=== PATIENT | female | born 1990 | race Caucasian/White ===

== ENCOUNTER 2018-04-02 02:41 | Outpatient (CLI) | payer OTHER ==
[2018-04-02 04:28] LABS: ADD UMIC YES; UR ASCORBIC ACID NEGATIVE (NEGATIVE); UR BACTERIA FEW /HPF (NONE SEEN); UR BILIRUBIN (Dip) NEGATIVE (NEGATIVE); UR BLOOD (Dip) 2+ mg/dL (NEGATIVE); UR CLARITY CLEAR (CLEAR); UR COLOR YELLOW (YELLOW); UR GLUCOSE (Dip) NEGATIVE (NEGATIVE); UR KETONES (Dip) NEGATIVE (NEGATIVE); UR LEUKOCYTE ESTERASE (Dip) 2+ Leu/ul (NEGATIVE); UR NITRITE (Dip) NEGATIVE (NEGATIVE); UR RBC 2 /HPF (0-5); UR SPECIFIC GRAVITY (Dip) 1.008 (1.003-1.030); UR SQUAMOUS EPITHELIAL CELL FEW /HPF (FEW); UR TOTAL PROTEIN (Dip) NEGATIVE (NEGATIVE); UR UROBILINOGEN (Dip) NEGATIVE (NEGATIVE); UR WBC 5 /HPF (0-5)
== END 2018-04-02 05:36 | disposition home or self-care (01) ==
LOC: OBT 02:41 → L-D 02:43 → OBT 05:36
DX: O26.893 Other specified pregnancy related conditions, third trimester (principal); Z3A.36 36 weeks gestation of pregnancy; R10.2 Pelvic and perineal pain
CPT/HCPCS: 76816; 81001

== ENCOUNTER 2018-04-18 19:05 | Inpatient (IN) | payer OTHER ==
[2018-04-18] MEDS ORDERED: LACTATED RINGER'S 1,000 ML IV (23:40)
[2018-04-18] MEDS: LACTATED RINGER'S 1,000 ML IV (23:53)
[2018-04-19] MEDS ORDERED: BUTORPHANOL 2 MG INJ IV
[2018-04-19] MEDS ORDERED: IBUPROFEN 600 MG TAB PO
[2018-04-19 00:43] LABS: ADD MAN DIFF? NO
[2018-04-19] MEDS: LACTATED RINGER'S 1,000 ML IV ×3 (00:45→16:44)
[2018-04-19 00:47] LABS: BASOPHILS % 0.3 % (0.0-2.0); EOSINOPHILS % 0.6 % (0.0-7.0); HEMATOCRIT 36.6 % (37.0-47.0); HEMOGLOBIN 12.3 g/dl (12.0-16.0); LYMPHOCYTES # 1.8 10^3/ul (0.8-2.9); LYMPHOCYTES % 25.8 % (15.0-51.0); MEAN CORPUSCULAR HEMOGLOBIN 29.2 pg (29.0-33.0); MEAN CORPUSCULAR HGB CONC 33.6 g/dl (32.0-37.0); MEAN CORPUSCULAR VOLUME 86.9 fl (82.0-101.0); MEAN PLATELET VOLUME 10.1 fl (7.4-10.4); MONOCYTE # 0.6 10^3/ul (0.3-0.9); MONOCYTES % 7.9 % (0.0-11.0); NEUTROPHIL # 4.5 10^3/ul (1.6-7.5); NEUTROPHILS % 64.8 % (39.0-77.0); PLATELET COUNT 319 10^3/UL (140-415); RED BLOOD COUNT 4.21 10^6/ul (4.20-5.40); RED CELL DISTRIBUTION WIDTH 14.8 % (11.5-14.5)
[2018-04-19 01:06] LABS: PROTIME 12.2 Sec (11.9-14.9)
[2018-04-19 01:07] LABS: PARTIAL THROMBOPLASTIN TIME 27.1 Sec (23.0-35.0)
[2018-04-19 01:40] LABS: HEPATITIS B SURFACE ANTIGEN NEGATIVE (NEGATIVE)
[2018-04-19] MEDS: OXYTOCIN 30 UNITS/LR 500 ML IV ×2 (02:38→19:16)
[2018-04-19 15:36] LABS: RAPID PLASMA REAGIN NONREACTIVE (NR)
[2018-04-19] MEDS: LIDOCAINE 1% (MPF) 30 ML INJ INJ (18:37)
[2018-04-19] MEDS: METHYLERGONOVINE 0.2 MG INJ IM (18:51)
[2018-04-19] MEDS: MISOPROSTOL 200 MCG TAB PR ×2 (18:51→18:55)
[2018-04-19] MEDS ORDERED: OXYTOCIN 30 UNITS/LR 500 ML IV ×4 (21:22→21:30)
[2018-04-19] MEDS ORDERED: CARBOPROST 250 MCG INJ IM ×2 (21:30)
[2018-04-19] MEDS ORDERED: SENNA/DOCUSATE NA (8.6MG/50MG) TAB PO (21:30)
[2018-04-19] MEDS ORDERED: HYDROCODONE/APAP (5/325) TAB PO (21:30)
[2018-04-19] MEDS ORDERED: MISOPROSTOL 200 MCG TAB PR (21:30)
[2018-04-19] MEDS ORDERED: NACL 0.9% 3 ML SYG IV (21:30)
[2018-04-19] MEDS ORDERED: METHYLERGONOVINE 0.2 MG INJ IM (21:30)
[2018-04-19] MEDS: LANOLIN HPA 1 PKT TOP (23:56)
[2018-04-19] MEDS: IBUPROFEN 800 MG TAB PO (23:56)
[2018-04-19] MEDS: BENZOCAINE 20% 56 ML SPRAY TOP (23:57)
[2018-04-19] MEDS: WITCH HAZEL/GLYCERIN PAD PR (23:57)
[2018-04-20] MEDS: IBUPROFEN 800 MG TAB PO ×4 (07:07→23:32)
[2018-04-20 08:04] LABS: ADD MAN DIFF? NO
[2018-04-20 08:10] LABS: WHITE BLOOD COUNT 17.1 10^3/ul (4.8-10.8)
[2018-04-20 08:10] LABS: BASOPHILS % 0.2 % (0.0-2.0); EOSINOPHILS % 0.2 % (0.0-7.0); HEMATOCRIT 32.7 % (37.0-47.0); HEMOGLOBIN 10.8 g/dl (12.0-16.0); LYMPHOCYTES # 3.3 10^3/ul (0.8-2.9); LYMPHOCYTES % 19.2 % (15.0-51.0); MEAN CORPUSCULAR VOLUME 87.7 fl (82.0-101.0); MEAN PLATELET VOLUME 10.1 fl (7.4-10.4); MONOCYTE # 1.2 10^3/ul (0.3-0.9); MONOCYTES % 7.2 % (0.0-11.0); NEUTROPHIL # 12.4 10^3/ul (1.6-7.5); NEUTROPHILS % 72.4 % (39.0-77.0); PLATELET COUNT 308 10^3/UL (140-415); RED BLOOD COUNT 3.73 10^6/ul (4.20-5.40); RED CELL DISTRIBUTION WIDTH 14.8 % (11.5-14.5)
[2018-04-20] MEDS: CALCIUM CARBONATE 1.25 GM TAB PO (08:42)
[2018-04-20] MEDS: PRENATAL VITAMIN PO (08:42)
[2018-04-20] MEDS: FERROUS SULFATE (EC) 325 MG TAB PO (08:42)
[2018-04-20] MEDS: NA PHOSPHATE/BIPHOS 133 ML ENEMA PR (10:30)
[2018-04-21] MEDS: IBUPROFEN 800 MG TAB PO ×2 (05:42→11:57)
[2018-04-21 07:05] LABS: ADD MAN DIFF? NO
[2018-04-21 07:10] LABS: BASOPHILS % 0.4 % (0.0-2.0); EOSINOPHILS # 0.1 10^3/ul (0.0-0.5); EOSINOPHILS % 1.1 % (0.0-7.0); HEMATOCRIT 28.8 % (37.0-47.0); HEMOGLOBIN 9.4 g/dl (12.0-16.0); LYMPHOCYTES % 27.7 % (15.0-51.0); MEAN CORPUSCULAR HGB CONC 32.6 g/dl (32.0-37.0); MEAN CORPUSCULAR VOLUME 88.9 fl (82.0-101.0); MEAN PLATELET VOLUME 9.9 fl (7.4-10.4); MONOCYTE # 0.8 10^3/ul (0.3-0.9); MONOCYTES % 7.7 % (0.0-11.0); NEUTROPHIL # 6.7 10^3/ul (1.6-7.5); NEUTROPHILS % 62.4 % (39.0-77.0); PLATELET COUNT 283 10^3/UL (140-415); RED BLOOD COUNT 3.24 10^6/ul (4.20-5.40); RED CELL DISTRIBUTION WIDTH 15.1 % (11.5-14.5)
[2018-04-21 07:10] LABS: WHITE BLOOD COUNT 10.7 10^3/ul (4.8-10.8)
[2018-04-21] MEDS: DIPHTH/TET/ACEL PERTUSS (ADULT) 0.5 ML VIAL IM* (09:05)
[2018-04-21] MEDS: FERROUS SULFATE (EC) 325 MG TAB PO (09:22)
[2018-04-21] MEDS: PRENATAL VITAMIN PO (09:22)
[2018-04-21] MEDS: CALCIUM CARBONATE 1.25 GM TAB PO (09:22)
== END 2018-04-21 15:53 | disposition home or self-care (01) | DRG 806 ==
LOC: OBT 19:05 → PP1 04-19 21:13 → L-D 19:06 → OBT 21:37 → L-D 23:13
PROVIDERS: Obstetrics & Gynecology
PROC: 4A1HXCZ Monitoring of Products of Conception, Cardiac Rate, External Approach (ICD-10-PCS; 2018-04-18)
PROC: 10E0XZZ Delivery of Products of Conception, External Approach (ICD-10-PCS; principal; 2018-04-19)
PROC: 0KQM0ZZ Repair Perineum Muscle, Open Approach (ICD-10-PCS; 2018-04-19)
DX: O69.1XX0 Labor and delivery complicated by cord around neck, with compression, not applicable or unspecified (principal); O72.1 Other immediate postpartum hemorrhage; Z37.0 Single live birth; O70.1 Second degree perineal laceration during delivery; Z3A.39 39 weeks gestation of pregnancy
CPT/HCPCS: 76815; 85025; 85610; 85730; 86592; 86850; 86900; 86901; 87340